=== PATIENT | female | born 1970 | race Caucasian/White ===

== ENCOUNTER 2017-03-29 18:03 | Emergency (ER) | payer OTHER ==
[~2017-03-29] VITALS: Ht 170.2 cm; Wt 93.0 kg
[2017-03-29 18:08] VITALS: TEMP 36.7; Ht 170.2 cm; Wt 93.0 kg
[2017-03-29] MEDS ORDERED: ACETAMINOPHEN 325 MG TAB PO STA (18:24)
--- NOTE | 2017-03-29 19:09 | DIAGNOSTIC IMAGING REPORT ---
HEAD WITHOUT CONTRAST (CT) CLINICAL HISTORY: 46 years-old Female presenting with fall hit head. TECHNIQUE: Multidetector CT imaging of the head was performed without the use of intravenous contrast. IV contrast: None. A dose lowering technique was used consistent with the principles of ALARA (as low as reasonably achievable). COMPARISON: None. CT DOSE (mGy.cm): The estimated cumulative dose is 1449.81 mGy.cm. FINDINGS: Technical Agronomist topogram: Unremarkable. Ventricles and sulci normal in size. Brain parenchyma normal in appearance with preserved herman-white differentiation. No mass effect or midline shift. No hemorrhage or acute territorial infarct. No extra-axial fluid collection. Paranasal sinuses and mastoid air cells clear. Calvarium intact. IMPRESSION: 1. No acute intracranial pathology. Electronically signed by: Isidro Pierce M.D. 03/29/2017 7:07 PM Dictated Date/Time: 03/29/2017 7:06 PM
--- NOTE | 2017-03-29 19:12 | DIAGNOSTIC IMAGING REPORT ---
CERVICAL SPINE W/O CLINICAL HISTORY: 46 years-old Female presenting with fall hit head. TECHNIQUE: Multidetector CT of the cervical spine was performed without the use of intravenous contrast. IV contrast: None. A dose lowering technique was used consistent with the principles of ALARA (as low as reasonably achievable). COMPARISON: None. CT DOSE (mGy.cm): The estimated cumulative dose is 1449.[address] head. FINDINGS: C Architect topogram: Unremarkable. Straightening of normal cervical lordosis likely positional. Vertebral bodies maintain normal height and alignment. Osseous fusion along the posterior aspect of the C6-7 vertebral body secondary to posterior osteophytosis. Small disc osteophyte complex noted at C5-6. Mild left osseous neural foraminal narrowing secondary to uncovertebral hypertrophy noted at C5-6. No osseous spinal canal narrowing. No acute fracture or subluxation. Skull base intact. Polypoid mucosal thickening in the right maxillary sinus. Soft tissues of the neck within normal limits. Lung apices clear. IMPRESSION: 1. No acute osseous injury of the cervical spine. 2. Degenerative changes at C5-6 and C6-7 with mild left neural foraminal narrowing at C5-6. Electronically signed by: Isidro Pierce M.D. 03/29/2017 7:11 PM Dictated Date/Time: 03/29/2017 7:08 PM
[2017-03-29 20:51] VITALS: BP 125/84; PULSE 66; O2SAT 98
--- NOTE | 2017-03-30 01:01 | EMERGENCY ROOM VISIT NOTE ---
History Report prepared by Sophia: Iman Sagastume Under the Supervision of: Payton HoffmannO. 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 When she walked from the carpet to the tile floor she slipped and fell forward. The patient landed on her knees and hit her head on the floor. The patient is unsure if she lost consciousness but co-workers reported that she lost consciousness for about 5 minutes. She is currently complaining of neck pain that she rates as a 5/10 in severity. She was brought to the ED by ambulance. EMS states that when they arrived on scene the patient was not making sense. The patient denies any drug or alcohol use today. She denies chest pain, abdominal pain, back pain, extremity pain, and any weakness or numbness in her extremities. She is not on any blood thinners. Source of History: patient Onset: MANAGER CREDIT RISK Position: other (global) Symptom Intensity: 5/10 Timing: other (episode) Modifying Factors (Worsening): other (slipping) Associated Symptoms: + LOC, + neck pain, No chest pain, No abdominal pain, No back pain, No weakness, No numbness Review of Systems See HPI for pertinent positives & negatives. A total of 10 systems reviewed and were otherwise negative. Past Medical & Surgical Social History Problems: (1) Tobacco use Family History No pertinent history stated. Social History Smoking Status: Current Every Day Smoker Alcohol Use: occasionally Marital Status: Occupation Status: employed Current/Historical Medications No Active Prescriptions or Reported Meds Allergies Coded Allergies: BEE STING (Unverified Allergy, Unknown, SWELLING, 03/29/17) Physical Exam Vital Signs Date Time Temp Pulse Resp B/P (MAP) Pulse Ox O2 Delivery O2 Flow Rate FiO2 03/29/17 20:51 66 20 125/84 98 03/29/17 18:08 36.7 72 20 117/85 95 Room Air Physical Exam GENERAL: alert, well appearing, well nourished, no distress, non-toxic, laying on backboard with cervical collar in place. HEAD: normal cephalic, atraumatic EYE EXAM: normal conjunctiva, PERRL and EOM's grossly intact OROPHARYNX: no exudate, no erythema, lips, buccal mucosa, and tongue normal and mucous membranes are moist NECK: cervical collar in place, minimal mid-cervical tenderness. CHEST: stable to compression anteriorly and posteriorly LUNGS: clear to auscultation. Normal chest wall mechanics HEART: no murmurs, S1 normal and S2 normal ABDOMEN: abdomen soft, non-tender, normo-active bowel sounds, no masses, no rebound or guarding. PELVIS: stable to compression anteriorly and posteriorly BACK: Back is symmetrical on inspection and there is no deformity, no midline tenderness, no CVA tenderness. UPPER EXTREMITIES: full active and passive range of motion of all joints without tenderness to palpation LOWER EXTREMITIES: full active and passive range of motion of all joints without tenderness to palpation NEURO EXAM: Normal sensorium, cranial nerves II-XII grossly intact, normal speech, no gross weakness of arms, no gross weakness of legs. GCS: 15. Medical Decision & Procedures ER Provider Diagnostic Interpretation: Radiology results as stated below per my review and the radiologist's interpretation: HEAD WITHOUT CONTRAST (CT) CLINICAL HISTORY: 46 years-old Female presenting with fall hit head. TECHNIQUE: Multidetector CT imaging of the head was performed without the use of intravenous contrast. IV contrast: None. A dose lowering technique was used consistent with the principles of ALARA (as low as reasonably achievable). COMPARISON: None. CT DOSE (mGy.cm): The estimated cumulative dose is 1449.81 mGy.cm. FINDINGS: Stitcher Tape Controlled Machine topogram: Unremarkable. Ventricles and sulci normal in size. Brain parenchyma normal in appearance with preserved herman-white differentiation. No mass effect or midline shift. No hemorrhage or acute territorial infarct. No extra-axial fluid collection. Paranasal sinuses and mastoid air cells clear. Calvarium intact. IMPRESSION: 1. No acute intracranial pathology. Electronically signed by: Isidro iPerce M.D. 03/29/2017 7:07 PM Dictated Date/Time: 03/29/2017 7:06 PM CERVICAL SPINE W/O CLINICAL HISTORY: 46 years-old Female presenting with fall hit head. TECHNIQUE: Multidetector CT of the cervical spine was performed without the use of intravenous contrast. IV contrast: None. A dose lowering technique was used consistent with the principles of ALARA (as low as reasonably achievable). COMPARISON: None. CT DOSE (mGy.cm): The estimated cumulative dose is 1449.[address] head. FINDINGS: Stitcher Tape Controlled Machine topogram: Unremarkable. Straightening of normal cervical lordosis likely positional. Vertebral bodies maintain normal height and alignment. Osseous fusion along the posterior aspect of the C6-7 vertebral body secondary to posterior osteophytosis. Small disc osteophyte complex noted at C5-6. Mild left osseous neural foraminal narrowing secondary to uncovertebral hypertrophy noted at C5-6. No osseous spinal canal narrowing. No acute fracture or subluxation. Skull base intact. Polypoid mucosal thickening in the right maxillary sinus. Soft tissues of the neck within normal limits. Lung apices clear. IMPRESSION: 1. No acute osseous injury of the cervical spine. 2. Degenerative changes at C5-6 and C6-7 with mild left neural foraminal narrowing at C5-6. Electronically signed by: Isidro Pierce M.D. 03/29/2017 7:11 PM Dictated Date/Time: 03/29/2017 7:08 PM Medications Administered Medications (Trade) Dose Ordered Sig/Katie Route Start Time Stop Time Status Last Admin Dose Admin Acetaminophen (Tylenol Tab) 650 mg NOW STAT PO 03/29/17 18:24 03/29/17 18:25 DC 03/29/17 18:24 650 MG ED Course ED COURSE: Vital signs were reviewed and showed normal vitals. The patients medical record was reviewed The above diagnostic studies were performed and reviewed. ED treatments and interventions as stated above. 1813: The patient was evaluated in room C8. A complete history and physical examination was performed. 182: Tylenol tab 650 mg PO 2008: Upon reevaluation, the patient is resting comfortably with no complaints and no current neck pain. Family agrees that the patient is at her baseline. I discussed my findings with the patient and she understands and agrees with the treatment plan. Based on the patients age, coexisting illnesses, exam and lab findings the decision to treat as an outpatient was made. The patient remained stable while under my care. The patient appeared well at the time of discharge. Medical Decision Differential diagnoses include major intracranial, cervical, spinal, thoracic, abdominal, pelvic and neurologic injury. Fracture, contusion, sprain, strain, laceration, abrasions included as well. Patient is a 46-year-old female that presents to ER following a reported fall at work. Reportedly she had a short period where she lost consciousness. She was confused. Currently on my evaluation she is awake alert and oriented. Patient admits to smoking marijuana yesterday but none today. CT head and cervical spine was negative. Cervical collar was removed. She notes her neck felt slightly better following removal of cervical collar. She was given Tylenol. She had no other complaints with the exception of mild lower back pain which she notes is chronic and not new or changed in any way. Patient was updated at bedside and discharged with family who states she is currently at her baseline.Discussed with Pt concerning signs and symptoms to watch out for. Pt was instructed to follow up with their PCP and discussed with the patient their option to return to the ED at anytime for persistent or worsening symptoms. The appropriate anticipatory guidance and out-patient management, including indications for return to the emergency department, were explained at length to the patient and understood. Medication Reconcilliation Current Medication List: was personally reviewed by me Blood Pressure Screening Patient's blood pressure: Normal blood pressure Impression Primary Impression: Concussion Scribe Attestation The scribe's documentation has been prepared under my direction and personally reviewed by me in its entirety. I confirm that the note above accurately reflects all work, treatment, procedures, and medical decision making performed by me. Departure Information Dispostion Home / Self-Care Prescriptions No Active Prescriptions or Reported Meds Referrals No Doctor Assigned Forms HOME CARE DOCUMENTATION FORM, IMPORTANT VISIT INFORMATION Patient Instructions Concussion Nuno, My [facility] Additional Instructions Please follow up with your primary care doctor in the next 24 hours. Any worsening of your symptoms, please return to the ED immediately. This includes any fevers greater than 100.4, new pain, chest pain, shortness breath, weakness in her arms or legs, neck pain, or any other concerning signs or symptoms from your standpoint. Absolutely no driving until cleared by your primary care doctor. No return to any physical activity i.e. sports until cleared by primary care doctor. Please take Tylenol or Motrin as needed for pain. Problem Qualifiers Primary Impression: Concussion Encounter type: initial encounter Loss of consciousness presence/duration: with LOC of 30 min or less Qualified Codes: S06.0X1A - Concussion with loss of consciousness of 30 minutes or less, initial encounter
== END 2017-03-29 20:52 | disposition home or self-care (01) ==
LOC: C.EDC 18:06
DX: S06.0X1A Concussion with loss of consciousness of 30 minutes or less, initial encounter (principal); W01.0XXA Fall on same level from slipping, tripping and stumbling without subsequent striking against object, initial encounter; Y99.0 Civilian activity done for income or pay; M54.2 Cervicalgia; F17.200 Nicotine dependence, unspecified, uncomplicated; F12.90 Cannabis use, unspecified, uncomplicated